=== PATIENT | male | born 1965 | race Two or more races ===

== ENCOUNTER 2024-04-10 16:56 | Inpatient (IN) | payer MEDICAID, OTHER ==
[~2024-04-10] VITALS: Ht 182.9 cm; Wt 119.2 kg
--- NOTE | 2024-04-10 18:54 | ED.PDOC ---
Altered Mental Status HPI Comments 59 y.o male presents to the ED via EMS for an evaluation of possible seizure versus syncope. Per daughter, patient experienced an episode where he initially became dizzy, then appeared to be about to pass out. Subsequently he showed some involuntary tonic activity in his right upper extremity described as flexing and curling up. During this period which lasted about 5 minutes, the patient was not responding. Daughter states after the tonic activity resolved, the patient became conscious, he was not making any sense when speaking to her. Patient states he recalls feeling dizzy prior to the onset of the symptoms, however does not recall anything else. Daughter reported event is new onset, no previous ALOC, or history of seizure.. Patient at this time states he feels better and is asymptomatic. Daughter reported patient does drink about 6-7 beers a daily with tobacco use, however has recently been trying to cut down. Patient states he had about 3 drinks today. Chief Complaint: Syncope Time Seen by MD: 18:35 Reviewed Notes: Nurses Notes, Arc Cutter Notes, Medications, Allergies Allergies: Coded Allergies: NO KNOWN ALLERGIES (Unverified , 04/10/24) Information Source: Patient, Relative (daughter ) Mode of Arrival: EMS Severity: Moderate Timing: Hours Duration: Since onset Quality: Decreased Alertness Associated Signs and Symptoms: None Past Medical History PAST MEDICAL HISTORY: HTN Surgical History: Denies all surgeries Family History Family History: Reviewed,noncontributory to illness Social History Smoker: Cigarettes Alcohol: Heavy Drugs: Denies Drug Use Constitutional: denies: chills, diaphoresis, fatigue, fever, malaise, sweats, weakness, others EENTM: denies: blurred vision, double vision, ear bleeding, ear discharge, ear drainage, ear pain, ear ringing, eye pain, eye redness, hearing loss, mouth pain, mouth swelling, nasal discharge, nose bleeding, nose congestion, nose pain, photophobia, tearing, throat pain, throat swelling, voice changes, others Respiratory: denies: cough, hemoptysis, orthopnea, SOB at rest, shortness of breath, SOB with excertion, stridor, wheezing, others Cardiovascular: reports: syncope; denies: chest pain, dizzy spells, diaphoresis, Dyspnea on exertion, edema, irregular heart beat, left arm pain, lightheadedness, palpitations, PND, others Gastrointestinal: denies: abdomen distended, abdominal pain, blood streaked bowels, constipated, diarrhea, dysphagia, difficulty swallowing, hematemesis, melena, nausea, poor appetite, poor fluid intake, rectal bleeding, rectal pain, vomiting, others Genitourinary: denies: burning, dysuria, flank pain, frequency, hematuria, incontinence, penile discharge, penile sore, pain, testicle pain, testicle swelling, urgency, others Neurological: reports: dizziness; denies: fainting, headache, left sided numbness, left sided weakness, numbness, paresthesia, pre-existing deficit, right sided numbness, right sided weakness, seizure, speech problems, tingling, tremors, weakness, others Musculoskeletal: reports: others (right arm cramp ); denies: back pain, gout, joint pain, joint swelling, muscle pain, muscle stiffness, neck pain Integumetry: denies: bruises, change in color, change in hair/nails, dryness, laceration, lesions, lumps, rash, wounds, others Allergic/Immunocompromised: denies: Difficulty Healing, Frequent Infections, Hives, Itching, others Hematologic/Lymphatic: denies: anemia, blood clots, easy bleeding, easy bruising, swollen glands, others Endocrine: denies: excessive hunger, excessive sweating, excessive thirst, excessive urination, flushing, intolerance to cold, intolerance to heat, unexp lained weight gain, unexplained weight loss, others Psychiatric: denies: anxiety, bipolar disorder, depression, hopeless, panic disorder, schizophrenia, sleepless, suicidal, others Physical Exam General Appearance: No Apparent Distress HEENT: Normal ENT Inspection, PERRL/EOMI Neck: Full Range of Motion, Normal Inspection Respiratory: Lungs Clear, No Accessory Muscle Use, No Respiratory Distress, Normal Breath Sounds Cardiovascular: No Edema, No JVD, Regular Rate/Rhythm Breast Exam: Deferred Gastrointestinal: Non Tender, Soft Genitalia: Deferred Pelvic: Deferred Rectal: Deferred Extremities: Normal inspection, Normal range of motion, Non-tender, No pedal edema Neurologic: Alert, 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 Was a procedure done?: No Differential Diagnosis (ALOC) Differential Diagnosis: Dehydration, Hypoglycemia, Encephalopathy, Hypoxemia, Seizure, Drug Overdose, ETOH Intoxication, Other (Alcohol withdrawal, among others) X-Ray, Labs, Meds, VS Vital Signs Date Time Temp Pulse Resp B/P (MAP) Pulse Ox O2 Delivery O2 Flow Rate FiO2 04/10/24 20:11 97.5 107 16 199/117 (144) 95 97.5 Lab Test 04/10/24 19:25 04/10/24 18:40 04/10/24 18:39 Range/Units Troponin I High Sensitivity 3 L 4 </=54 ng/L Urine Color Colorless Yellow Urine Clarity Clear Clear Urine pH 6.0 5.0-9.0 Urine Specific [place] 1.002 1.001-1.035 Urine Protein Negative Negative Urine Ketones Negative Negative Urine Blood Negative Negative /uL Urine Nitrite Negative Negative Urine Bilirubin Negative Negative Urine Urobilinogen Normal Negative mg/dL Urine Leukocyte Esterase Negative Negative /uL Urine RBC 1 0 - 3 /hpf Urine WBC None seen 0 - 3 /hpf Urine Squamous Epithelial Cells None seen <5 /hpf Urine Bacteria Few H None Seen /hpf Urine Glucose Normal Normal mg/dL Urine Opiates Screen Neg NEGATIVE Urine Fentanyl Screen Neg NEGATIVE Urine Barbiturates Screen Neg NEGATIVE Urine Phencyclidine Screen Neg NEGATIVE Urine Amphetamines Screen Neg NEGATIVE Urine Benzodiazepines Screen Neg NEGATIVE Urine Cocaine Screen Neg NEGATIVE Urine Cannabinoids Screen Neg NEGATIVE White Blood Count 12.6 H 4.4-10.8 10^3/uL Red Blood Count 5.22 4.5-5.90 10^6/uL Hemoglobin 16.0 13.5-17.5 g/dL Hematocrit 45.7 41.0-53.0 % Mean Corpuscular Volume 87.5 80.0-100.0 fL Mean Corpuscular Hemoglobin 30.7 28.0-32.0 pg Mean Corpuscular Hemoglobin Concent 35.1 32.0-36.0 g/dL Red Cell Distribution Width 13.8 11.8-14.3 % Platelet Count 254 140-450 10^3/uL Mean Platelet Volume 9.3 6.9-10.8 fL Neutrophils (%) (Auto) 79.2 37.0-80.0 % Lymphocytes (%) (Auto) 14.1 10.0-50.0 % Monocytes (%) (Auto) 4.6 0.0-12.0 % Eosinophils (%) (Auto) 1.8 0.0-7.0 % Basophils (%) (Auto) 0.3 0.0-2.0 % Neutrophils # (Auto) 9.9 H 1.6-8.6 10 ^3/uL Lymphocytes # (Auto) 1.8 0.4-5.4 10 ^3/uL Monocytes # (Auto) 0.6 0-1.3 10 ^3/uL Eosinophils # (Auto) 0.2 0-0.8 10 ^3/uL Basophils # (Auto) 0 0-0.2 10 ^3/uL Nucleated Red Blood Cells 0.1 % Sodium Level 139 136-145 mmol/L Potassium Level 4.2 3.5-5.1 mmol/L Chloride Level 100 98-107 mmol/L Carbon Dioxide Level 29 20-31 mmol/L Anion Gap 10 5-15 Blood Urea Nitrogen 13 9-23 mg/dL Creatinine 1.18 0.700-1.30 mg/dL Glomerular Filtration Rate Calc 71 >90 mL/min BUN/Creatinine Ratio 11.0 10.0-20.0 Serum Glucose 180 H 74-106 mg/dL Calcium Level 10.5 H 8.7-10.4 mg/dL B-Type Natriuretic Peptide 17.96 0-100 pg/mL Plasma/Serum Blood Alcohol 15.7 H <10 mg/dL Current Medications Medications (Trade) Dose Ordered Sig/Hussain Route Start Time Stop Time Status Last Admin Chlordiazepoxide HCl (Librium Capsule) 50 mg ONCE ONCE PO 04/10/24 18:45 04/10/24 18:46 DC 04/10/24 20:19 PROCEDURE(s): HWOCT - HEAD WITHOUT CONTRAST REASON: seizure vs syncope ORDER NUMBER(s): [id number], ACCESSION NUMBER(s): [id number] Exam: CT HEAD WITHOUT CONTRAST History: seizure vs syncope Technique: [address] images through the posterior fossa and the supratentorial compartment were acquired without contrast and imaged using soft tissue and bone algorithms. RADIATION DOSE: DLP 892.56 mGy.cm; CTDI vol 55.68 mGy. Comparison: None Findings: There is no evidence of an intracranial hemorrhage, acute large vessel infarct, mass effect, or midline shift. Moderate to marked calcification of the carotid siphons. Mucoperiosteal thickening of the paranasal sinuses. The calvarium, orbits, sella, middle ears, and mastoids are unremarkable. The superficial soft tissues are within normal limits. Impression: 1. No acute intracranial abnormality. X-Ray, Labs, Meds, VS Comment 59-year-old male with history of hypertension presenting with an episode of unresponsiveness, right upper extremity tonic activity, followed by altered mental status which resolved after 5 minutes. Vitals remarkable for BP 199/117, heart rate [address] unremarkable CBC, BMP, 2 serial troponins, BNP, urine drug screen and UA remarkable for WBC 12.6, no other abnormality of acute significance ETOH 15.7 Patient was treated with the following in the ED: Librium 50 mg p.o., hydralazine 10 mg p.o. On re-evaluation, patient had no new neurologic changes and had no focal deficit on exam. Plan is to admit the patient for brain MRI and Neurology evaluation. Time of 1ST Reevaluation: 18:48 Reevaluation 1ST: Unchanged Time of 2ND Reevaluation: 20:46 Reevaluation 2ND: Unchanged Patient Education/Counseling: Diagnosis, Treatment, Prognosis Family Education/Counseling: Diagnosis, Treatment, Prognosis Departure 1 Departure Time of Disposition: 20:46 Impression: Primary Impression: New onset seizure Disposition: ADMITTED INPATIENT Admit to: Tele Condition: Guarded Critical Care Note Critical Care Time?: No Stability Stability form required: No I personally scribed for SUHAIL SETH MD ([facility] on 04/10/24 at 18:54. Electronically submitted by Debo Colby ([facility]). SUHAIL SETH MD Apr 10, 2024 18:54
[2024-04-10 18:55] LABS: Urine WBC None Seen /hpf (0 - 3)
[2024-04-10 19:13] LABS: Basophils # (auto) 0 10 ^3/uL (0-0.2); Basophils % (auto) 0.3 % (0.0-2.0); Eosinophils # (auto) 0.2 10 ^3/uL (0-0.8); Eosinophils % (auto) 1.8 % (0.0-7.0); Hematocrit 45.7 % (41.0-53.0); Lymphocytes # (auto) 1.8 10 ^3/uL (0.4-5.4); Lymphocytes % (auto) 14.1 % (10.0-50.0); Mean Corpuscular Hemoglobin 30.7 pg (28.0-32.0); Mean Corpuscular Hgb Conc. 35.1 g/dL (32.0-36.0); Mean Corpuscular Volume 87.5 fL (80.0-100.0); Monocytes # (auto) 0.6 10 ^3/uL (0-1.3); Monocytes % (auto) 4.6 % (0.0-12.0); Neutrophils # (auto) 9.9 10 ^3/uL (1.6-8.6); Neutrophils % (auto) 79.2 % (37.0-80.0); Nucleated Red Blood Cells % 0.1 %; Platelet Count (auto) 254 10^3/uL (140-450); Red Blood Cells 5.22 10^6/uL (4.5-5.90); Red Cell Distribution Width 13.8 % (11.8-14.3); White Blood Cell 12.6 10^3/uL (4.4-10.8)
[2024-04-10 19:20] LABS: Urine Bacteria FEW /hpf (None Seen); Urine Blood Negative /uL (Negative); Urine Clarity Clear (Clear); Urine Color Colorless (Yellow); Urine Protein, UAD Negative (Negative); Urine Specific Gravity 1.002 (1.001-1.035); Urine Urobilinogen Normal (Negative)
[2024-04-10 19:25] LABS: Calcium 10.5 mg/dL (8.7-10.4); Chloride 100 mmol/L (98-107); Potassium 4.2 mmol/L (3.5-5.1); Sodium 139 mmol/L (136-145)
[2024-04-10 19:26] LABS: Anion Gap 10 (5-15); Carbon Dioxide 29 mmol/L (20-31)
[2024-04-10 19:30] LABS: Amphetamine Screen, Urine Neg (NEGATIVE)
[2024-04-10 19:31] LABS: Barbiturate Scree,Urine Neg (NEGATIVE); Benzodiazephine Screen, Urine Neg (NEGATIVE); Cannabinoid Screen, Urine Neg (NEGATIVE); Cocaine Screen, Urine Neg (NEGATIVE); Opiate Scree,Urine Neg (NEGATIVE); Phencyclidine Screen, Urine Neg (NEGATIVE)
[2024-04-10 19:31] LABS: Blood Alcohol 15.7 mg/dL (<10); Blood Urea Nitrogen 13 mg/dL (9-23); Glucose 180 mg/dL (74-106)
--- NOTE | 2024-04-10 19:59 | DVH ---
Exam: CT HEAD WITHOUT CONTRAST History: seizure vs syncope Technique: [address] images through the posterior fossa and the supratentorial compart ment were acquired without contrast and imaged using soft tissue and bone algorithms. RADIATION DOSE: DLP 892.56 mGy.cm; CTDI vol 55.68 mGy. Comparison: None Findings: There is no evidence of an intracranial hemorrhage, acute large vessel infarct, mass effect, or midli ne shift. Moderate to marked calcification of the carotid siphons. Mucoperiosteal thickening of the paranasal sinuses. The calvarium, orbits, sella, middle ears, and ma stoids are unremarkable. The superficial soft tissues are within normal limits. Impression: 1. No acute intracranial abnormality.
[2024-04-10] MEDS: chlordiazePOXIDE HCL 25 MG CAP PO ONE (20:19)
[2024-04-10] MEDS: hydrALAZINE HCL 10 MG TAB PO ONE (20:39)
[2024-04-10 21:47] VITALS: PULSE 109; RESP 18; O2SAT 95
[2024-04-10] MEDS ORDERED: ACETAMINOPHEN 325 MG TAB PO PRN (23:00)
[2024-04-10] MEDS ORDERED: HYDROcodone-ACET 5/325MG TAB PO PRN (23:00)
[2024-04-10] MEDS ORDERED: DOCUSATE SOD 100 MG CAP PO PRN (23:00)
[2024-04-10] MEDS ORDERED: ONDANSETRON HCL 4 MG/2 ML VIAL IV PRN (23:00)
[2024-04-10] MEDS: SODIUM CHLORIDE 0.9% 1,000 ML IV SCH (23:46)
--- NOTE | 2024-04-10 23:50 | DVHHP2 ---
History of Present Illness Reason for Visit: Syncope History of Present Illness The patient is a 59-year-old male with past medical history of hypertension who presented to [facility] ED for evaluation of syncopal episode. As reported by daughter, patient experienced an episode where he initially became dizzy, then appeared to be about to pass out. Subsequently he showed some involuntary tonic activity in his right upper extremity described as flexing and curling up, not responding, which lasted about 5 minutes. Daughter states after the tonic activity resolved, the patient became conscious, he was not making any sense when speaking. Patient states he recalls feeling dizzy prior to the onset of the symptoms, however does not recall anything else. Patient was seen and evaluated in the ED, laboratory data shows WBC 12.6, platelets 254, sodium 139, potassium 4.2, BUN 13, creatinine 1.18, glucose 180, BNP 17.96, troponin 3, calcium 10.5, serum alcohol 15.7, blood pressure 216/114 trending down to 167/104, heart rate 108 trending down to 88, temperature 97.6 F, O2 saturation 97% on room air. Head CT showed no acute intracranial abnormality. Patient was started on IV hydralazine, please see medication orders section in the computer. On my assessment, patient denies chest pain, no headache, no dizziness, no diaphoresis, no shortness a breath, no nausea, no vomiting, no fever, no chills. Patient was admitted for further evaluation and medical management. Past Medical History HTN Past Surgical History Denies all surgeries Family History Reviewed, noncontributory to the management of this case. Past Social History The patient lives at home, smokes cigarettes, drinks alcohol heavily, denies alcohol or illicit drugs abuse. Review of Systems Constitutional: No: Fever, Chills, Sweats, Weakness, Malaise, Other Eyes: No: Pain, Vision change, Conjunctivae inflammation, Eyelid inflammation, Other, Redness ENT: No: Ear pain, Ear discharge, Nose pain, Nose discharge, Nose congestion, Mouth pain, Mouth swelling, Throat pain, Throat swelling, Other Respiratory: No: Cough, Dry, Shortness of breath, SOB with excertion, Wheezing, Hemoptysis, Pleuritic Pain, Sputum, Wheezing, Other Cardiovascular: Other (Syncope); No: Chest Pain, Palpitations, Orthopnea, Paroxysmal Noc. Dyspnea, Edema, Lt Headedness Gastrointestinal: No: Nausea, Vomiting, Abdominal Pain, Diarrhea, Constipation, Melena, Hematochezia, Other Genitourinary: No Dysuria, No Frequency, No Incontinence, No Hematuria, No Retention, No Other Musculoskeletal: other (right arm cramp ), arm pain; No: neck pain, shoulder pain, back pain, hand pain, leg pain, foot pain Skin: No: Rash, Lesions, Jaundice, Bruising, Other Neurological: Other (Dizziness); No: Weakness, Numbness, Incoordination, Change in speech, Confusion, Seizures Allergies: Coded Allergies: NO KNOWN ALLERGIES (Unverified , 04/10/24) Medications Current Medications Medications Dose Ordered Sig/Hussain Route Start Time Stop Time Status Last Admin Dose Admin Metoprolol Tartrate 25 mg BID PO 04/11/24 10:00 Hydralazine HCl 10 mg Q6HP PRN IV 04/10/24 23:00 Sodium Chloride 1,000 ml @ 60 mls/hr [id number] IV 04/10/24 23:00 04/10/24 23:46 60 MLS/HR Acetaminophen/ Hydrocodone Bitart 1 tab Q4HP PRN PO 04/10/24 23:00 Ondansetron HCl 4 mg Q4HP PRN IV 04/10/24 23:00 Docusate Sodium 100 mg BIDPRN PRN PO 04/10/24 23:00 Acetaminophen 650 mg Q6HP PRN PO 04/10/24 23:00 Folic Acid 1 mg/ Dextrose 50.2 ml @ 200.8 mls/ hr DAILY INJ 04/11/24 10:00 Thiamine HCl 100 mg DAILY IV 04/11/24 10:00 Multivitamins 1 tab DAILY PO 04/11/24 10:00 Exam Vital Signs Vital Signs Date Time Temp Pulse Resp B/P (MAP) Pulse Ox O2 Delivery O2 Flow Rate FiO2 04/10/24 23:44 97 24 170/103 (125) 95 04/10/24 21:47 Room Air* 0 21 04/10/24 20:11 97.5 97.5 General Appearance: Alert, Oriented X3, Cooperative, No acute distress HEENT: Atraumatic, PERRLA, EOMI, Mucous membr. moist/pink Respiratory: Clear to auscultation, Normal air movement Cardiovascular: Regular rate, Normal S1, Normal S2, No murmurs Abdominal: Normal bowel sounds, Soft, No tenderness, No hepatospenomegaly, No masses Extremities: No clubbing, No cyanosis, No edema, Normal pulses, No tenderness/swelling Skin: No rashes, No breakdown, No significant lesion Neuro: Normal speech, Normal tone, Sensation intact, Cranial nerves 3-12 NL, Reflexes 2+ Psych/Mental Status: Mental status NL, Mood NL Labs/Xrays Labs Test 04/10/24 19:25 04/10/24 18:40 04/10/24 18:39 Range/Units Troponin I High Sensitivity 3 L </=54 ng/L Urine Color Colorless Yellow Urine Clarity Clear Clear Urine pH 6.0 5.0-9.0 Urine Specific [place] 1.002 1.001-1.035 Urine Protein Negative Negative Urine Ketones Negative Negative Urine Blood Negative Negative /uL Urine Nitrite Negative Negative Urine Bilirubin Negative Negative Urine Urobilinogen Normal Negative mg/dL Urine Leukocyte Esterase Negative Negative /uL Urine RBC 1 0 - 3 /hpf Urine WBC None seen 0 - 3 /hpf Urine Squamous Epithelial Cells None seen <5 /hpf Urine Bacteria Few H None Seen /hpf Urine Glucose Normal Normal mg/dL Urine Opiates Screen Neg NEGATIVE Urine Fentanyl Screen Neg NEGATIVE Urine Barbiturates Screen Neg NEGATIVE Urine Phencyclidine Screen Neg NEGATIVE Urine Amphetamines Screen Neg NEGATIVE Urine Benzodiazepines Screen Neg NEGATIVE Urine Cocaine Screen Neg NEGATIVE Urine Cannabinoids Screen Neg NEGATIVE White Blood Count 12.6 H 4.4-10.8 10^3/uL Red Blood Count 5.22 4.5-5.90 10^6/uL Hemoglobin 16.0 13.5-17.5 g/dL Hematocrit 45.7 41.0-53.0 % Mean Corpuscular Volume 87.5 80.0-100.0 fL Mean Corpuscular Hemoglobin 30.7 28.0-32.0 pg Mean Corpuscular Hemoglobin Concent 35.1 32.0-36.0 g/dL Red Cell Distribution Width 13.8 11.8-14.3 % Platelet Count 254 140-450 10^3/uL Mean Platelet Volume 9.3 6.9-10.8 fL Neutrophils (%) (Auto) 79.2 37.0-80.0 % Lymphocytes (%) (Auto) 14.1 10.0-50.0 % Monocytes (%) (Auto) 4.6 0.0-12.0 % Eosinophils (%) (Auto) 1.8 0.0-7.0 % Basophils (%) (Auto) 0.3 0.0-2.0 % Neutrophils # (Auto) 9.9 H 1.6-8.6 10 ^3/uL Lymphocytes # (Auto) 1.8 0.4-5.4 10 ^3/uL Monocytes # (Auto) 0.6 0-1.3 10 ^3/uL Eosinophils # (Auto) 0.2 0-0.8 10 ^3/uL Basophils # (Auto) 0 0-0.2 10 ^3/uL Nucleated Red Blood Cells 0.1 % Sodium Level 139 136-145 mmol/L Potassium Level 4.2 3.5-5.1 mmol/L Chloride Level 100 98-107 mmol/L Carbon Dioxide Level 29 20-31 mmol/L Anion Gap 10 5-15 Blood Urea Nitrogen 13 9-23 mg/dL Creatinine 1.18 0.700-1.30 mg/dL Glomerular Filtration Rate Calc 71 >90 mL/min BUN/Creatinine Ratio 11.0 10.0-20.0 Serum Glucose 180 H 74-106 mg/dL Hemoglobin A1c 9.5 H <5.7 % A1C Calcium Level 10.5 H 8.7-10.4 mg/dL B-Type Natriuretic Peptide 17.96 0-100 pg/mL Plasma/Serum Blood Alcohol 15.7 H <10 mg/dL PATIENT: MARTY YOUNGACCT: [id number] UNIT: [id number] : 1965 LOC: ER ROOM / BED: / AGE / SEX: 59 / M ADM STATUS: REG ER SERVICE [id number] ORDERING PHYSICIAN: SUHAIL SETH MD PROCEDURE(s): HWOCT - HEAD WITHOUT CONTRAST REASON: seizure vs syncope ORDER NUMBER(s): [id number], ACCESSION NUMBER(s): [id number] Exam: CT HEAD WITHOUT CONTRAST History: seizure vs syncope Technique: [address] images through the posterior fossa and the supratentorial compartment were acquired without contrast and imaged using soft tissue and bone algorithms. RADIATION DOSE: DLP 892.56 mGy.cm; CTDI vol 55.68 mGy. Comparison: None Findings: There is no evidence of an intracranial hemorrhage, acute large vessel infarct, mass effect, or midline shift. Moderate to marked calcification of the carotid siphons. Mucoperiosteal thickening of the paranasal sinuses. The calvarium, orbits, sella, middle ears, and mastoids are unremarkable. The superficial soft tissues are within normal limits. Impression: 1. No acute intracranial abnormality. Assessment/Plan Assessment/Plan Syncopal episode Hyperglycemia EtOH abuse Hypertensive urgency Generalized weakness Leukocytosis, unspecified Plan 1. Admit to telemetry unit 2. Breathing treatment 3. Pain control management 4. Management of fluids and electrolytes 5. Consultation for hospitalist 6. Diagnostic tests head CT 7. DVT prophylaxis on SCDs 8. Repeat labs CBC, CMP in a.m. 9. Continue with current medical management 10. Treatment plan discussed with patient and RN. Patient verbalized understanding. Plan discussed with: Patient, Other (RN) My Orders Orders - ELLEN ROBERTS DNP Procedure Category Date Status Time Metoprolol Tartrate PHA 04/11/24 In Process Tablet (Lopressor Ta 10:00 Hydralazine Injection PHA 04/10/24 In Process (Apresoline Inject 23:00 Allergies UMU 04/10/24 In Process 22:47 Code Status CODE 04/10/24 Transmitted 22:47 Sodium Chloride 0.9% PHA 04/10/24 In Process 23:00 Oxygen Per Hour RT 04/10/24 Transmitted 22:47 Hydrocodone-Acet PHA 04/10/24 In Process 5/325mg Tab ([place] 23:00 Ondansetron Hcl PHA 04/10/24 In Process (Zofran) 23:00 Docusate Sodium PHA 04/10/24 In Process Capsule (Colace 23:00 Complete Blood Count LAB 04/11/24 Verified 04:00 Comprehensive LAB 04/11/24 Verified Metabolic Panel 04:00 Cardiac DIET 04/11/24 Transmitted Diet-2gna,Lofat,Lochol Breakfast Condition: Serious UMU 04/10/24 In Process 22:47 Acetaminophen Tablet PHA 04/10/24 In Process (Tylenol Tablet) 23:00 Bedrest With Bathroom UMU 04/10/24 In Process Privileg 22:47 Sequential UMU 04/10/24 In Process Compression Device Folic Acid PHA 04/11/24 In Process 10:00 Thiamine Inj PHA 04/11/24 In Process 10:00 Multiple Vitamin PHA 04/11/24 In Process Tablet (Mvi Tab) 10:00 Problem List: (1) Syncopal episodes (2) ETOH abuse (3) Hypertensive urgency (4) Hyperglycemia (5) Generalized weakness (6) Leukocytosis, unspecified Date of Service: Apr 10, 2024 Billing Provider: ELLEN ROBERTS DNP Common Visit Codes: 92525-[id number] INP/OBS CARE (HIGH) ELLEN ROBERTS DNP Apr 10, 2024 23:50
[2024-04-10] MEDS: METOPROLOL TARTRATE 25 MG TAB PO ONE (23:53)
[2024-04-11] VITALS (8 sets, daily range): BP systolic 157–184; BP diastolic 89–103; PULSE 58–81; RESP 16–18; TEMP 97.6–98.8; O2SAT 94–99
[2024-04-11] MEDS ORDERED: MORPHINE SULFATE INJ 2 MG/ml SYRG IV PRN
[2024-04-11] MEDS ORDERED: NITROGLYCERIN 0.4 MG SL TAB SL PRN
[2024-04-11] MEDS ORDERED: ASPI1TAB20 PO (03:09)
[2024-04-11] MEDS ORDERED: AMLO1TAB23 PO (03:09)
[2024-04-11 07:09] LABS: Basophils # (auto) 0.1 10 ^3/uL (0-0.2); Basophils % (auto) 0.6 % (0.0-2.0); Eosinophils # (auto) 0.6 10 ^3/uL (0-0.8); Eosinophils % (auto) 6.3 % (0.0-7.0); Hematocrit 45.3 % (41.0-53.0); Hemoglobin 15.4 g/dL (13.5-17.5); Lymphocytes # (auto) 2.7 10 ^3/uL (0.4-5.4); Mean Corpuscular Hemoglobin 29.6 pg (28.0-32.0); Mean Corpuscular Volume 87.1 fL (80.0-100.0); Monocytes # (auto) 0.5 10 ^3/uL (0-1.3); Neutrophils # (auto) 5.1 10 ^3/uL (1.6-8.6); Neutrophils % (auto) 57.1 % (37.0-80.0); Nucleated Red Blood Cells % 0.2 %; Platelet Count (auto) 240 10^3/uL (140-450); Red Cell Distribution Width 14.2 % (11.8-14.3)
[2024-04-11 07:46] LABS: Alanine Aminotransferase 23 U/L (7-40); Albumin 3.9 g/dL (3.2-4.8); Alkaline Phosphatase 83 U/L (46-116); Anion Gap 6 (5-15); BUN/Creatinine Ratio 9.3 (10.0-20.0); Blood Urea Nitrogen 9 mg/dL (9-23); Calcium 9.5 mg/dL (8.7-10.4); Carbon Dioxide 27 mmol/L (20-31); Chloride 106 mmol/L (98-107); Glucose 208 mg/dL (74-106); Potassium 3.7 mmol/L (3.5-5.1); Sodium 139 mmol/L (136-145)
[2024-04-11 07:47] LABS: Aspartate Aminotransferase 15 U/L (13-40); Bilirubin, Total 0.5 mg/dL (0.2-1.0); Total Protein 6.9 g/dL (5.7-8.2)
[2024-04-11] MEDS: hydrALAZINE HCL 20 MG/ML VL IV PRN (08:20)
[2024-04-11] MEDS: FOLIC ACID 1 MG in D5W 5% 50 ML INJ SCH (10:00)
[2024-04-11] MEDS ORDERED: METOPROLOL TARTRATE 25 MG TAB PO SCH (10:00)
[2024-04-11] MEDS: THIAMINE 100mg/ml INJ (200mg/2ml VIAL) IV SCH (10:04)
[2024-04-11] MEDS: MULTIPLE VITAMIN TAB PO SCH (10:05)
[2024-04-11] MEDS: METOPROLOL TARTRATE 50 MG TAB PO SCH (10:25)
[2024-04-11] MEDS: cloNIDine HCL 0.1 MG TAB PO PRN (10:29)
[2024-04-11] MEDS: cefTRIAXone 1GM/50ML D5W 50 ML IV SCH (14:14)
[2024-04-11] MEDS: amLODIPine BESYLATE 5 MG TAB PO ONE (17:25)
--- NOTE | 2024-04-11 23:11 | DVHPN2 ---
Subjective The patient seen and examined at bedside. No complaint today. Reviewed: Care Plan, H&P, Labs, Medications, Previous Orders, Radiology Changes from previous H/P or p: No Changes Eyes: No Pain, No Vision change, No Conjunctivae inflammation, No Eyelid inflammation, No Other, No Redness ENT: No Ear pain, No Ear discharge, No Nose pain, No Nose discharge, No Nose congestion, No Mouth pain, No Mouth swelling, No Throat pain, No Throat swelling, No Other Cardiovascular: No Chest Pain, No Palpitations, No Orthopnea, No Paroxysmal Noc. Dyspnea, No Edema, No Lt Headedness; Other (Syncope) Respiratory: No Cough, No Dry, No Shortness of breath, No SOB with excertion, No Wheezing, No Hemoptysis, No Pleuritic Pain, No Sputum, No Other Gastrointestinal: No Nausea, No Vomiting, No Abdominal Pain, No Diarrhea, No Constipation, No Melena, No Hematochezia, No Other Genitourinary: No Dysuria, No Frequency, No Incontinence, No Hematuria, No Retention, No Other Musculoskeletal: other (right arm cramp ); No neck pain, No shoulder pain; arm pain; No back pain, No hand pain, No leg pain, No foot pain Skin: No Rash, No Lesions, No Jaundice, No Bruising, No Other Objective Vitals Vital Signs Date Time Temp Pulse Resp B/P (MAP) Pulse Ox O2 Delivery O2 Flow Rate FiO2 04/11/24 22:01 69 145/82 04/11/24 21:00 97.9 16 99 97.9 04/11/24 20:00 Room Air* 0 21 Intake/Output Intake and Output 04/11/24 07:00 Intake Total 0 ml Output Total 0 ml Balance 0 ml Intake Oral 0 ml Output Urine Total 0 ml General Appearance: Alert, Cooperative, No acute distress HEENT: Atraumatic, PERRLA, EOMI, Mucous membr. moist/pink Neck: Supple Lungs: Clear to auscultation, Normal air movement Cardiovascular: Regular rate, Normal S1, Normal S2, No murmurs, Gallops, Rubs Abdomen: Normal bowel sounds, Soft, No tenderness Neuro: Cranial nerves 3-12 NL Psych/Mental Status: Mental status NL Medications Current Medications Medications Dose Ordered Sig/Hussain Route Start Time Stop Time Status Last Admin Dose Admin Hydralazine HCl 10 mg Q6HP PRN IV 04/10/24 23:00 04/11/24 08:20 10 MG Sodium Chloride 1,000 ml @ 60 mls/hr [id number] IV 04/10/24 23:00 04/11/24 14:15 60 MLS/HR Acetaminophen/ Hydrocodone Bitart 1 tab Q4HP PRN PO 04/10/24 23:00 Ondansetron HCl 4 mg Q4HP PRN IV 04/10/24 23:00 Docusate Sodium 100 mg BIDPRN PRN PO 04/10/24 23:00 Acetaminophen 650 mg Q6HP PRN PO 04/10/24 23:00 Folic Acid 1 mg/ Dextrose 50.2 ml @ 200.8 mls/ hr DAILY INJ 04/11/24 10:00 04/11/24 10:00 200.8 MLS/HR Thiamine HCl 100 mg DAILY IV 04/11/24 10:00 04/11/24 10:04 100 MG Multivitamins 1 tab DAILY PO 04/11/24 10:00 04/11/24 10:05 1 TAB Nitroglycerin 0.4 mg Q5MINP PRN SL 04/11/24 00:00 Morphine Sulfate 2 mg Q30M PRN IV 04/11/24 00:00 Metoprolol Tartrate 50 mg BID PO 04/11/24 10:00 04/11/24 21:01 50 MG Clonidine HCl 0.1 mg Q4HP PRN PO 04/11/24 05:45 04/11/24 16:58 0.1 MG Ceftriaxone Sodium 50 ml @ 100 mls/hr DAILY@09 IV 04/11/24 13:30 04/11/24 14:14 100 MLS/HR Amlodipine Besylate 10 mg DAILY PO 04/12/24 10:00 Laboratory Results Laboratory Tests 04/11/24 06:03 Chemistry Test 04/11/24 06:03 Albumin 3.9 g/dL (3.2-4.8) Calcium Level 9.5 mg/dL (8.7-10.4) Total Protein 6.9 g/dL (5.7-8.2) LFT Test 04/11/24 06:03 Alanine Aminotransferase (ALT) 23 U/L (7-40) Alkaline Phosphatase 83 U/L (46-116) Aspartate Amino Transferase (AST) 15 U/L (13-40) Total Bilirubin 0.5 mg/dL (0.2-1.0) Urinalysis Test 04/10/24 18:40 Urine Color Colorless (Yellow) Urine Clarity Clear (Clear) Urine pH 6.0 (5.0-9.0) Urine Specific [place] 1.002 (1.001-1.035) Urine Protein Negative (Negative) Urine Ketones Negative (Negative) Urine Blood Negative /uL (Negative) Urine Nitrite Negative (Negative) Urine Bilirubin Negative (Negative) Urine Urobilinogen Normal mg/dL (Negative) Urine Leukocyte Esterase Negative /uL (Negative) Urine RBC 1 /hpf (0 - 3) Urine WBC None seen /hpf (0 - 3) Urine Squamous Epithelial Cells None seen /hpf (<5) Urine Bacteria Few /hpf (None Seen) H Urine Glucose Normal mg/dL (Normal) Labs and/or images reviewed: Labs reviewed by me Assessment/Plan Assessment/Plan Syncopal episode Hyperglycemia EtOH abuse Hypertensive urgency Generalized weakness Leukocytosis, unspecified Continuing current management. Continuing with IV fluid. Continuing with hypertensive medication. Encouraged the patient to be out of bed and ambulate. We will order MRI of the brain to rule out stroke. Plan discussed with: Patient My Orders Orders - BETO JENNINGS MD Procedure Category Date Status Time Ceftriaxone 1gm/50ml PHA 04/11/24 In Process D5w (Rocephin) 13:30 Amlodipine Tablet PHA 04/12/24 In Process (Norvasc Tablet) 10:00 Date of Service: Apr 11, 2024 Billing Provider: BETO JENNINGS MD Common Visit Codes: [id number] INP/OBS CARE(HIGH) BETO JENNINGS MD Apr 11, 2024 23:11
[2024-04-12] VITALS (8 sets, daily range): BP systolic 122–175; BP diastolic 73–99; PULSE 52–75; RESP 16–18; TEMP 97.4–98.2; O2SAT 95–97
[2024-04-12] MEDS: amLODIPine BESYLATE 5 MG TAB PO SCH (09:50)
--- NOTE | 2024-04-12 11:40 | DVHPN2 ---
Reviewed: Care Plan, H&P, Labs, Medications, Previous Orders, Radiology Changes from previous H/P or p: No Changes Eyes: No Pain, No Vision change, No Conjunctivae inflammation, No Eyelid inflammation, No Other, No Redness ENT: No Ear pain, No Ear discharge, No Nose pain, No Nose discharge, No Nose congestion, No Mouth pain, No Mouth swelling, No Throat pain, No Throat swelling, No Other Cardiovascular: No Chest Pain, No Palpitations, No Orthopnea, No Paroxysmal Noc. Dyspnea, No Edema, No Lt Headedness; Other (Syncope) Respiratory: No Cough, No Dry, No Shortness of breath, No SOB with excertion, No Wheezing, No Hemoptysis, No Pleuritic Pain, No Sputum, No Other Gastrointestinal: No Nausea, No Vomiting, No Abdominal Pain, No Diarrhea, No Constipation, No Melena, No Hematochezia, No Other Genitourinary: No Dysuria, No Frequency, No Incontinence, No Hematuria, No Retention, No Other Musculoskeletal: other (right arm cramp ); No neck pain, No shoulder pain; arm pain; No back pain, No hand pain, No leg pain, No foot pain Skin: No Rash, No Lesions, No Jaundice, No Bruising, No Other Objective Vitals Vital Signs Date Time Temp Pulse Resp B/P (MAP) Pulse Ox O2 Delivery O2 Flow Rate FiO2 04/12/24 09:50 130/73 04/12/24 09:50 75 04/12/24 09:08 97.9 18 96 97.9 04/11/24 20:00 Room Air* 0 21 Intake/Output Intake and Output 04/12/24 07:00 Intake Total 1250 ml Output Total 300 ml Balance 950 ml Intake Oral 1200 ml IV Total 50 ml Output Urine Total 300 ml # Voids 6 # Bowel Movements 1 Medications Current Medications Medications Dose Ordered Sig/Hussain Route Start Time Stop Time Status Last Admin Dose Admin Hydralazine HCl 10 mg Q6HP PRN IV 04/10/24 23:00 04/11/24 08:20 10 MG Sodium Chloride 1,000 ml @ 60 mls/hr [id number] IV 04/10/24 23:00 04/12/24 09:48 60 MLS/HR Acetaminophen/ Hydrocodone Bitart 1 tab Q4HP PRN PO 04/10/24 23:00 Ondansetron HCl 4 mg Q4HP PRN IV 04/10/24 23:00 Docusate Sodium 100 mg BIDPRN PRN PO 04/10/24 23:00 Acetaminophen 650 mg Q6HP PRN PO 04/10/24 23:00 Folic Acid 1 mg/ Dextrose 50.2 ml @ 200.8 mls/ hr DAILY INJ 04/11/24 10:00 04/12/24 09:44 200.8 MLS/HR Thiamine HCl 100 mg DAILY IV 04/11/24 10:00 04/12/24 11:20 100 MG Multivitamins 1 tab DAILY PO 04/11/24 10:00 04/12/24 09:49 1 TAB Nitroglycerin 0.4 mg Q5MINP PRN SL 04/11/24 00:00 Morphine Sulfate 2 mg Q30M PRN IV 04/11/24 00:00 Metoprolol Tartrate 50 mg BID PO 04/11/24 10:00 04/12/24 09:50 50 MG Clonidine HCl 0.1 mg Q4HP PRN PO 04/11/24 05:45 04/11/24 16:58 0.1 MG Ceftriaxone Sodium 50 ml @ 100 mls/hr DAILY@09 IV 04/11/24 13:30 04/12/24 09:44 100 MLS/HR Amlodipine Besylate 10 mg DAILY PO 04/12/24 10:00 04/12/24 09:50 10 MG Laboratory Results Laboratory Tests 04/11/24 06:03 Urinalysis Test 04/10/24 18:40 Urine Color Colorless (Yellow) Urine Clarity Clear (Clear) Urine pH 6.0 (5.0-9.0) Urine Specific [place] 1.002 (1.001-1.035) Urine Protein Negative (Negative) Urine Ketones Negative (Negative) Urine Blood Negative /uL (Negative) Urine Nitrite Negative (Negative) Urine Bilirubin Negative (Negative) Urine Urobilinogen Normal mg/dL (Negative) Urine Leukocyte Esterase Negative /uL (Negative) Urine RBC 1 /hpf (0 - 3) Urine WBC None seen /hpf (0 - 3) Urine Squamous Epithelial Cells None seen /hpf (<5) Urine Bacteria Few /hpf (None Seen) H Urine Glucose Normal mg/dL (Normal) Assessment/Plan Assessment/Plan Syncopal episode Hyperglycemia EtOH abuse Hypertensive urgency Generalized weakness Leukocytosis, unspecified Continuing current management. Continuing with IV fluid. Continuing with hypertensive medication. I will empirically treat the patient with Rocephin 1 g IV q.day for possible urinary tract infection and we will monitor his leukocytosis. Encouraged the patient to be out of bed and ambulate. Waiting for MRI of the brain. Plan discussed with: Patient My Orders Orders - BETO JENNINGS MD Procedure Category Date Status Time Ceftriaxone 1gm/50ml PHA 04/11/24 In Process D5w (Rocephin) 13:30 Amlodipine Tablet PHA 04/12/24 In Process (Norvasc Tablet) 10:00 Date of Service: Apr 12, 2024 Billing Provider: BETO JENNINGS MD Common Visit Codes: [id number] INP/OBS CARE(HIGH) BETO JENNINGS MD Apr 12, 2024 11:40
[2024-04-12] MEDS ORDERED: DEXTROSE (50%) 50ML SYRG IV PRN (12:30)
--- NOTE | 2024-04-12 17:42 | DVH ---
EXAMINATION: MRI BRAIN HEAD WO CONTRAST INDICATION: rule out cva COMPARISON: CT HEAD WITHOUT CONTRAST on DOS: 04/10/24 TECHNIQUE: Multiplanar, multisequence magnetic resonance imaging of the brain was performed without the use of i ntravenous contrast. FINDINGS: No evidence of acute infarct. Chronic lacunar infarcts at the right anterior thalamus/ internal caps ule . No intracranial hemorrhage. No mass effect. Normal variant cavum septum pellucidum et vergae. There is periventricular/deep white matter T2/FLAIR hyperintensity is nonspecific, but most commonly associated with chronic microvascular disease. The ventricles and sulci are normal in size for age. Clear basal cisterns. Flow voids in the major intracranial vessels are maintained. No abnormality of the orbits. Trace left mastoid effusion. Bilateral ethmoid and maxillary mucoperiosteal thickening. Right spheno id mucoperiosteal thickening. No abnormality of the visualized osseous structures and extracranial soft tissues. IMPRESSION: 1. No acute infarct, intracranial hemorrhage, mass effect, or hydrocephalus. 2. Chronic subcentimeter lacunar infarcts at the right thalamus/ internal capsule. 3. 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 HS:Y
[2024-04-12] MEDS: ACCU-CHEK COMFORT CURVE STRIP VI SCH (17:52)
[2024-04-12] MEDS: InsuLIN REG 1unit/0.01ml Soln (100units/ml) SC SCH ×2 (17:59→21:31)
[2024-04-12] MEDS: metFORMIN HYDROCHLORIDE 500 MG TAB PO SCH (21:27)
[2024-04-13 01:01] VITALS: BP 120/77; PULSE 61; RESP 20; TEMP 98.3; O2SAT 97
[2024-04-13 04:17] VITALS: BP 117/81; PULSE 65; RESP 17; TEMP 98; O2SAT 94
[2024-04-13 08:10] VITALS: PULSE 62
[2024-04-13 08:42] VITALS: BP 150/80; PULSE 61; RESP 18; TEMP 97.9; O2SAT 98
[2024-04-13 13:00] VITALS: BP 165/96; PULSE 59; RESP 17; TEMP 98.3; O2SAT 96
--- NOTE | 2024-04-13 14:38 | DVHDS2 ---
Discharge Summary Date of Admission Apr 10, 2024 at 23:48 Date of Discharge: Apr 13, 2024 Labs/Diagnostic Data: Laboratory Results Test 04/13/24 11:37 04/11/24 06:03 04/10/24 19:25 04/10/24 18:40 POC Glucose 195 mg/dl (70-106) White Blood Count 9.0 10^3/uL (4.4-10.8) Red Blood Count 5.20 10^6/uL (4.5-5.90) Hemoglobin 15.4 g/dL (13.5-17.5) Hematocrit 45.3 % (41.0-53.0) Mean Corpuscular Volume 87.1 fL (80.0-100.0) Mean Corpuscular Hemoglobin 29.6 pg (28.0-32.0) Mean Corpuscular Hemoglobin Concent 34.0 g/dL (32.0-36.0) Red Cell Distribution Width 14.2 % (11.8-14.3) Platelet Count 240 10^3/uL (140-450) Mean Platelet Volume 9.0 fL (6.9-10.8) Neutrophils (%) (Auto) 57.1 % (37.0-80.0) Lymphocytes (%) (Auto) 30.0 % (10.0-50.0) Monocytes (%) (Auto) 6.0 % (0.0-12.0) Eosinophils (%) (Auto) 6.3 % (0.0-7.0) Basophils (%) (Auto) 0.6 % (0.0-2.0) Neutrophils # (Auto) 5.1 10 ^3/uL (1.6-8.6) Lymphocytes # (Auto) 2.7 10 ^3/uL (0.4-5.4) Monocytes # (Auto) 0.5 10 ^3/uL (0-1.3) Eosinophils # (Auto) 0.6 10 ^3/uL (0-0.8) Basophils # (Auto) 0.1 10 ^3/uL (0-0.2) Nucleated Red Blood Cells 0.2 % Sodium Level 139 mmol/L (136-145) Potassium Level 3.7 mmol/L (3.5-5.1) Chloride Level 106 mmol/L (98-107) Carbon Dioxide Level 27 mmol/L (20-31) Anion Gap 6 (5-15) Blood Urea Nitrogen 9 mg/dL (9-23) Creatinine 0.97 mg/dL (0.700-1.30) Glomerular Filtration Rate Calc 89 mL/min (>90) BUN/Creatinine Ratio 9.3 (10.0-20.0) Serum Glucose 208 mg/dL (74-106) Calcium Level 9.5 mg/dL (8.7-10.4) Total Bilirubin 0.5 mg/dL (0.2-1.0) Aspartate Amino Transferase (AST) 15 U/L (13-40) Alanine Aminotransferase (ALT) 23 U/L (7-40) Alkaline Phosphatase 83 U/L (46-116) Total Protein 6.9 g/dL (5.7-8.2) Albumin 3.9 g/dL (3.2-4.8) Troponin I High Sensitivity 3 ng/L (</=54) Urine Color Colorless (Yellow) Urine Clarity Clear (Clear) Urine pH 6.0 (5.0-9.0) Urine Specific [place] 1.002 (1.001-1.035) Urine Protein Negative (Negative) Urine Ketones Negative (Negative) Urine Blood Negative /uL (Negative) Urine Nitrite Negative (Negative) Urine Bilirubin Negative (Negative) Urine Urobilinogen Normal mg/dL (Negative) Urine Leukocyte Esterase Negative /uL (Negative) Urine RBC 1 /hpf (0 - 3) Urine WBC None seen /hpf (0 - 3) Urine Squamous Epithelial Cells None seen /hpf (<5) Urine Bacteria Few /hpf (None Seen) Urine Glucose Normal mg/dL (Normal) Urine Opiates Screen Neg (NEGATIVE) Urine Fentanyl Screen Neg (NEGATIVE) Urine Barbiturates Screen Neg (NEGATIVE) Urine Phencyclidine Screen Neg (NEGATIVE) Urine Amphetamines Screen Neg (NEGATIVE) Urine Benzodiazepines Screen Neg (NEGATIVE) Urine Cocaine Screen Neg (NEGATIVE) Urine Cannabinoids Screen Neg (NEGATIVE) Test 04/10/24 18:39 Hemoglobin A1c 9.5 % A1C (<5.7) B-Type Natriuretic Peptide 17.96 pg/mL (0-100) Plasma/Serum Blood Alcohol 15.7 mg/dL (<10) Other Laboratory Tests 04/11/24 06:03 Brief Hx & Hospital Course: Syncopal episode, likely due to ETOH use wihtout intoxication SIRS without organ dysfunction Hyperglycemia EtOH abuse Hypertensive urgency Generalized weakness Leukocytosis, unspecified MRI is negative discharged to home with self care Condition at Discharge: Stable Final Diagnosis/Problems List see above Discharge Disposition: Home Discharge Instruct/Medications Diet: Cardiac 2g Na,low cholest Activity: No Restrictions, As Tolerated Discharge Statement: "Patient was advised to return to the ER or call 911 if any headaches, dizziness, shortness of breath, chest pain, abdominal pain, bleeding, fevers, or worsening of medical condition. Patient was counseled about treatment plan, medications, possible side effects, patientverbalized understanding. All questions were answered to the best of my ability. This discharge took greater then 30 minutes in planning, reviewing documentation, counseling the patient, and discussing with other team members." ASSESSMENT ASSESSMENT Assessment Date of Service: Apr 13, 2024 Billing Provider: STEPHEN BURCH DO Common Visit Codes: [id number] DISCH DAY >30min STEPHEN BURCH DO Apr 13, 2024 14:38
[2024-04-13 17:00] VITALS: BP 155/96; PULSE 75; RESP 17; TEMP 97.9; O2SAT 97
== END 2024-04-13 17:55 | disposition home or self-care (01) | DRG 199 ==
LOC: EDBD 16:56 → ER 16:56 → TELE 23:48 → TELE-WESTW 23:49 → WEST WING 04-13 14:01
PROVIDERS: ADMIT Nurse Practitioner Family; ATTEND Internal Medicine
DX: I16.0 Hypertensive urgency (principal); R65.10 Systemic inflammatory response syndrome (SIRS) of non-infectious origin without acute organ dysfunction; R56.9 Unspecified convulsions; F10.10 Alcohol abuse, uncomplicated; R73.9 Hyperglycemia, unspecified; F17.210 Nicotine dependence, cigarettes, uncomplicated; I10 Essential (primary) hypertension
CPT/HCPCS: 36415; 70450; 70551; 80048; 80053; 80307; 80320; 81001; 82962; 83036; 83880; 84484; 85025; G0378; J1815; J7060